=== PATIENT | male | born 1950 | race Caucasian/White ===

== ENCOUNTER 2018-01-06 00:11 | Emergency (ER) | payer MEDICARE, MEDICAID ==
[2018-01-06 01:11] LABS: % BASOPHILS 0.7 % (0.0-2.0); % EOSINOPHILS 0.4 % (0.0-5.0); % LYMPHOCYTES 8.7 % (20.0-50.0); % MONOCYTES 12.3 % (2.0-10.0); % NEUTROPHILS 77.9 % (40.0-80.0); HEMATOCRIT 32.9 % (41.0-60); HEMOGLOBIN 11.2 gm/dL (12-16); LYMPHOCYTE ABSOLUTE 0.5 Th/cmm (1.5-3.0); MEAN CELL VOLUME 100.4 fl (80-99); MEAN CORPUSCULAR HEMOGLOBIN 34.1 pg (27.0-31.0); MEAN PLATELET VOLUME 7.6 fl; MONOCYTE ABSOLUTE 0.7 Th/cmm (0.3-1.0); NEUTROPHILE ABSOLUTE 4.7 Th/cmm (1.8-8.0); PLATELET COUNT 281 Th/cmm (150-400); RED BLOOD COUNT 3.28 Mil/cmm (3.80-5.80); RED CELL DISTRIBUTION WIDTH 15.4 % (11.5-20.0); WHITE BLOOD COUNT 5.9 Th/cmm (4.8-10.8)
--- NOTE | 2018-01-06 01:11 | ED Physician Chart ---
ED Chief Complaint/HPI - Patient Information Date Seen:: 01/06/18 Time Seen:: 01:00 Chief Complaint:: aggressive behavior History of Present Illness:: Patient had been exhibiting increasingly aggressive behavior at his residential facility. Patient has reportedly been throwing objects. 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 Allergies:: Allergies Allergy/AdvReac Type Severity Reaction Status Date / Time No Known Allergies Allergy Verified 01/06/18 00:19 Vitals:: Vital Signs - 8 hr 01/06/18 00:15 Temp 96.8 F HR 97 RR 20 BP 141/95 O2 Sat % 96 Review:: Transfer documents Reviewed ED Review of Systems - Review of Systems General/Constitutional: No fever, No chills, No weight loss, No weakness, No diaphoresis, No edema, No loss of appetite Skin: No skin lesions, No rash, No bruising Head: No headache, No light-headedness Eyes: No loss of vision, No pain, No diplopia ENT: No earache, No nasal drainage, No sore throat, No tinnitus Neck: No neck pain, No swelling, No thyromegaly, No stiffness, No mass noted Cardio Vascular: No chest pain, No palpitations, No PND, No orthopnea, No edema Pulmonary: No SOB, No cough, No sputum, No wheezing GI: No nausea, No vomiting, No diarrhea, No pain, No melena, No hematochezia, No constipation, No hematemesis G/U: No dysuria, No frequency, No hematuria Musculoskeletal: No bone or joint pain, No back pain, No muscle pain Endocrine: No polyuria, No polydipsia Psychiatric: No prior psych history, No depression, No anxiety, No suicidal ideation Hematopoietic: No bruising, No lymphadenopathy Allergic/Immuno: No urticaria, No angioedema Neurological: No syncope, No focal symptoms, No weakness, No paresthesia, No headache, No seizure, No dizziness, No confusion, No vertigo ED Past Medical History - Past Medical History Past Medical History: HTN, Other (chronic renal disease; GERD; hypothyroidism; cerebral palsy) Family History: Other (available) Social History: Care Facility Surgical History: other (tracheostomy) Psychiatricy History: Other (none known) Medication: Reviewed ED Physical Exam - Physical Examination General/Constitutional: Awake Head: Atraumatic Eyes: PERRL Skin: Nl inspection, No rash ENMT: External ears, nose nl, TM canals nl Other ENMT comments:: Edentulous Neck: No nuchal rigidity Respiratory: Nl effort/Exclusion Other Respiratory comments:: Scattered inspiratory expiratory wheezing GI: No tenderness/rebounding/guarding : No CVA tenderness Extremities: No tenderness or effusion Neuro/Psych: No focal deficits ED Labs/Radiology/EKG Results - Lab Results Results: Laboratory Results - last 24 hr 01/06/18 01/06/18 01/06/18 01:05 01:05 01:05 WBC 5.9 RBC 3.28 L Hgb 11.2 L Hct 32.9 L MCV 100.4 H MCH 34.1 H MCHC Differential 34.0 RDW 15.4 Plt Count 281 MPV 7.6 Neutrophils % 77.9 Lymphocytes % 8.7 L Monocytes % 12.3 H Eosinophils % 0.4 Basophils % 0.7 Sodium 135 L Potassium 3.7 Chloride 99 Carbon Dioxide 30.6 Anion Gap 9.1 BUN 29 H Creatinine 1.1 Est GFR ( Amer) > 60.0 Est GFR (Non-Af Amer) > 60.0 BUN/Creatinine Ratio 26.4 Glucose 74 Calcium 8.8 Total Bilirubin 0.4 AST 11 L ALT 11 Alkaline Phosphatase 53 Total Protein 6.0 Albumin 3.2 L Globulin 2.8 Albumin/Globulin Ratio 1.1 Triglycerides 143 Cholesterol 226 H LDL Cholesterol Direct 142 HDL Cholesterol 58 TSH 2.47 - EKG Interpretations Rate & Rhythm: normal sinus rhythm at a rate of 92 [facility]: normal ED Septic Shock - . Is Septic Shock (SBP<90, OR Lactate>4 mmol\L) present?: No - <6hrs of presentation: Vital Signs: Vital Signs - 8 hr 01/06/18 00:15 Temp 96.8 F HR 97 RR 20 BP 141/95 O2 Sat % 96 ED Reassessment (Disposition) - Reassessment Reassessment:: Patient to return to residential facility since no beds available in [facility] Reassessment Condition:: Unchanged - Diagnosis Diagnosis:: Aggressive behavior; cerebral palsy - Aftercare/Follow up Instructions Aftercare/Follow-Up Instructions:: Refer to Discharge Instructions - Patient Disposition Discharge/Transfer:: Residential Care - SNF Condition at Disposition:: Stable, Unchanged
[2018-01-06 01:25] LABS: ALB/GLOB RATIO 1.1 (1.0-1.8); ALBUMIN 3.2 gm/dL (4.2-5.5); ALKALINE PHOSPHATASE 53 U/L (34-104); ANION GAP 9.1 (7.0-16.0); BILIRUBIN,TOTAL 0.4 mg/dL (0.3-1.0); BUN - UREA NITROGEN 29 mg/dL (7-25); CALCIUM SERUM 8.8 mg/dL (8.6-10.3); CARBON DIOXIDE 30.6 mEq/L (21.0-31.0); CHLORIDE 99 mEq/L (98-107); CHOLESTEROL 226 mg/dL (<200); CREATININE - SERUM 1.1 mg/dL (0.7-1.3); GFR AFRICAN-AMERICAN > 60.0 ml/min (>90); GFR NON AFRICAN-AMERICAN > 60.0 ml/min; GLUCOSE 74 mg/dL (70-105); HDL -HIGH DENSITY LIPOPROTEIN 58 mg/dL (23-92); POTASSIUM SERUM 3.7 mEq/L (3.5-5.1); SGOT 11 U/L (13-39); SGPT/ALT 11 U/L (7-52); SODIUM SERUM 135 mEq/L (136-145); TRIGLYCERIDES 143 mg/dL (<150)
[2018-01-06 21:04] LABS: A1C % 6.6 % (4.0-6.0)
== END 2018-01-06 02:50 ==
LOC: ER 00:11
DX: F91.8 Other conduct disorders (principal); G80.9 Cerebral palsy, unspecified; I10 Essential (primary) hypertension; R79.89 Other specified abnormal findings of blood chemistry
CPT/HCPCS: 36415-UA; 80053-TC; 80061-TC; 83036-90; 84443-TC; 85025-TC; 86592-TC; 93005

== ENCOUNTER 2018-02-20 07:32 | Inpatient (IN) | payer MEDICARE, MEDICAID ==
--- NOTE | 2018-02-20 07:59 | ED Physician Chart ---
ED Chief Complaint/HPI - Patient Information Date Seen:: 02/20/18 Time Seen:: 07:53 Chief Complaint:: rt shoulder pain History of Present Illness:: 67 yr old male here from [place] for shoulder pain possible dislocation pt not talking Allergies:: Allergies Allergy/AdvReac Type Severity Reaction Status Date / Time No Known Allergies Allergy Verified 01/06/18 00:19 ED Review of Systems - Review of Systems General/Constitutional: No fever Skin: No skin lesions Head: No headache Eyes: No pain ENT: No nasal drainage Neck: No swelling Cardio Vascular: No edema Pulmonary: No SOB GI: No vomiting G/U: No hematuria Musculoskeletal: Other (possible rt shoulder dislocation) Endocrine: No polyuria Hematopoietic: No bruising Neurological: No syncope ED Past Medical History - Past Medical History Past Medical History: HTN (renal dz), PUD/GERD, Thyroid disorder, Other ( cerebral palsy gait abn muscle weakness) Surgical History: other (trach) ED Physical Exam - Physical Examination Eyes: Lids, conjuctiva normal ENMT: External ears, nose nl Neck: Nontender Other Neck comments:: tracheostomy Respiratory: Nl effort/Exclusion Cardio Vascular: RRR GI: No tenderness/rebounding/guarding Other Extremities comments:: possible rt shoulder dislocation ED Assessment - Assessment General Assessment: rt shoulder pain r/o dislocation ED Septic Shock - . Is Septic Shock (SBP<90, OR Lactate>4 mmol\L) present?: No ED Reassessment (Disposition) - Diagnosis Diagnosis:: rt shoulder pain - Patient Disposition Condition at Disposition:: Stable
[2018-02-20 08:36] LABS: HEMATOCRIT 38.5 % (41.0-60); HEMOGLOBIN 13.2 gm/dL (12-16); MEAN CELL VOLUME 100.8 fl (80-99); MEAN CORPUSCULAR HEMOGLOBIN 34.5 pg (27.0-31.0); MEAN CORPUSCULAR HGB CONC 34.3 pg (28.0-36.0); MEAN PLATELET VOLUME 7.7 fl; PLATELET COUNT 221 Th/cmm (150-400); RED BLOOD COUNT 3.82 Mil/cmm (3.80-5.80); RED CELL DISTRIBUTION WIDTH 15.1 % (11.5-20.0); WHITE BLOOD COUNT 5.9 Th/cmm (4.8-10.8)
[2018-02-20 08:51] LABS: ALB/GLOB RATIO 1.4 (1.0-1.8); ALBUMIN 3.3 gm/dL (4.2-5.5); ALKALINE PHOSPHATASE 51 U/L (34-104); ANION GAP 10.3 (7.0-16.0); BILIRUBIN,TOTAL 0.4 mg/dL (0.3-1.0); BUN - UREA NITROGEN 18 mg/dL (7-25); CARBON DIOXIDE 29.2 mEq/L (21.0-31.0); CHLORIDE 99 mEq/L (98-107); CREATININE - SERUM 0.9 mg/dL (0.7-1.3); GFR AFRICAN-AMERICAN > 60.0 ml/min (>90); GFR NON AFRICAN-AMERICAN > 60.0 ml/min; GLUCOSE 94 mg/dL (70-105); POTASSIUM SERUM 3.5 mEq/L (3.5-5.1); SGOT 15 U/L (13-39); SGPT/ALT 16 U/L (7-52); SODIUM SERUM 135 mEq/L (136-145); TOTAL PROTEIN,SERUM 5.7 gm/dL (6.0-8.3)
--- NOTE | 2018-02-20 08:51 | Diagnostic Imaging Report ---
Left shoulder (3 views) HISTORY: Pain There is anterior dislocation of the left humeral head. No definite associated fractures. IMPRESSION: Dislocation
[2018-02-20 09:32] LABS: BAND NEUTROPHILE 1 % (0-10); BASOPHIL 0 % (0-3); EOSINOPHIL 0 % (0-5); LYMPHOCYTE 5 % (20-50); MONOCYTE 6 % (2-10); NEUTROPHILS 88 % (40-80)
[2018-02-20 11:18] LABS: URINE SOURCE MIDSTREAM
[2018-02-20 11:20] LABS: URINE BILIRUBIN NEGATIVE (NEGATIVE); URINE BLOOD NEGATIVE (NEGATIVE); URINE GLUCOSE (UA) NEGATIVE (NEGATIVE); URINE KETONE NEGATIVE (NEGATIVE); URINE LEUKOCYTE ESTERASE NEGATIVE (NEGATIVE); URINE NITRATE NEGATIVE (NEGATIVE); URINE PROTEIN NEGATIVE (NEGATIVE); URINE UROBILINOGEN 0.2 E.U./dL (0.2 - 1.0)
[2018-02-20 11:23] LABS: URINE CLARITY CLEAR (CLEAR); URINE COLOR YELLOW; URINE MICROSCOPIC INDICATED? NO
[2018-02-20] MEDS ORDERED: Magnesium Hydroxide (MOM) 30 mL UDC PO PRN (11:41)
[2018-02-20] MEDS ORDERED: Fleet Enema 135 mL RC PRN (11:41)
[2018-02-20] MEDS ORDERED: Acetaminophen 500 MG TAB PO PRN (11:41)
--- NOTE | 2018-02-20 11:41 | Internal Medicine Prog Note ---
Internal Medicine Subjective - Subjective Service Date: 02/20/18 ([facility] [id number]) Internal Medicine Objective - Results Result Diagrams: 02/20/18 08:30 02/20/18 08:30 Recent Labs: Laboratory Last Values WBC 5.9 Th/cmm (4.8-10.8) 02/20/18 08:30 RBC 3.82 Mil/cmm (3.80-5.80) 02/20/18 08:30 Hgb 13.2 gm/dL (12-16) 02/20/18 08:30 Hct 38.5 % (41.0-60) L 02/20/18 08:30 MCV 100.8 fl (80-99) H 02/20/18 08:30 MCH 34.5 pg (27.0-31.0) H 02/20/18 08:30 MCHC Differential 34.3 pg (28.0-36.0) 02/20/18 08:30 RDW 15.1 % (11.5-20.0) 02/20/18 08:30 Plt Count 221 Th/cmm (150-400) 02/20/18 08:30 MPV 7.7 fl 02/20/18 08:30 Add Manual Diff YES 02/20/18 08:30 Neutrophils % [employer]LLER 02/20/18 08:30 Band Neutrophils % 1 % (0-10) 02/20/18 08:30 Lymphocytes % [employer]ER 02/20/18 08:30 Monocytes % PRINT [employer]OLLER 02/20/18 08:30 Eosinophils % PRINT [employer]OLLER 02/20/18 08:30 Basophils % PR[employer]ER 02/20/18 08:30 Neutrophils (Manual) 88 % (40-80) H 02/20/18 08:30 Lymphocytes 5 % (20-50) L 02/20/18 08:30 Monocytes 6 % (2-10) 02/20/18 08:30 Eosinophils 0 % (0-5) 02/20/18 08:30 Basophils 0 % (0-3) 02/20/18 08:30 Sodium 135 mEq/L (136-145) L 02/20/18 08:30 Potassium 3.5 mEq/L (3.5-5.1) 02/20/18 08:30 Chloride 99 mEq/L (98-107) 02/20/18 08:30 Carbon Dioxide 29.2 mEq/L (21.0-31.0) 02/20/18 08:30 Anion Gap 10.3 (7.0-16.0) 02/20/18 08:30 BUN 18 mg/dL (7-25) 02/20/18 08:30 Creatinine 0.9 mg/dL (0.7-1.3) 02/20/18 08:30 Est GFR ( Amer) > 60.0 ml/min (>90) 02/20/18 08:30 Est GFR (Non-Af Amer) > 60.0 ml/min 02/20/18 08:30 BUN/Creatinine Ratio 20.0 02/20/18 08:30 Glucose 94 mg/dL (70-105) 02/20/18 08:30 Calcium 9.0 mg/dL (8.6-10.3) 02/20/18 08:30 Total Bilirubin 0.4 mg/dL (0.3-1.0) 02/20/18 08:30 AST 15 U/L (13-39) 02/20/18 08:30 ALT 16 U/L (7-52) 02/20/18 08:30 Alkaline Phosphatase 51 U/L (34-104) 02/20/18 08:30 Total Protein 5.7 gm/dL (6.0-8.3) L 02/20/18 08:30 Albumin 3.3 gm/dL (4.2-5.5) L 02/20/18 08:30 Globulin 2.4 gm/dL 02/20/18 08:30 Albumin/Globulin Ratio 1.4 (1.0-1.8) 02/20/18 08:30 Urine Source MIDSTREAM 02/20/18 10:50 Urine Color YELLOW 02/20/18 10:50 Urine Clarity CLEAR (CLEAR) 02/20/18 10:50 Urine pH 7.0 (4.6 - 8.0) 02/20/18 10:50 Ur Specific [place] 1.010 (1.005-1.030) 02/20/18 10:50 Urine Protein NEGATIVE mg/dL (NEGATIVE) 02/20/18 10:50 Urine Glucose (UA) NEGATIVE mg/dL (NEGATIVE) 02/20/18 10:50 Urine Ketones NEGATIVE mg/dL (NEGATIVE) 02/20/18 10:50 Urine Blood NEGATIVE (NEGATIVE) 02/20/18 10:50 Urine Nitrate NEGATIVE (NEGATIVE) 02/20/18 10:50 Urine Bilirubin NEGATIVE (NEGATIVE) 02/20/18 10:50 Urine Urobilinogen 0.2 E.U./dL (0.2 - 1.0) 02/20/18 10:50 Ur Leukocyte Esterase NEGATIVE (NEGATIVE) 02/20/18 10:50 - Physical Exam Vitals and I&O: Vital Signs Temp 98.2 F 02/20/18 10:00 Pulse 106 02/20/18 10:00 Resp 20 02/20/18 10:00 BP 127/83 02/20/18 10:00 Pulse Ox 98 02/20/18 10:00 Intake & Output 02/19/18 02/20/18 02/20/18 18:59 06:59 18:59 Weight (lbs) 160 lb Other: Weight Source Estimated
[2018-02-20] MEDS ORDERED: Ipratropium Neb 0.5 mg/2.5 mL UD IH PRN (11:44)
[2018-02-20] MEDS ORDERED: Albuterol Nebulizer 2.5mg/3mL IH PRN (11:44)
[2018-02-20] MEDS ORDERED: Maalox 30 mL Cup PO PRN (11:45)
[2018-02-20] MEDS ORDERED: guaiFENesin 200 MG/10 ML UDC PO PRN (11:45)
[2018-02-20] MEDS ORDERED: Budesonide 0.5 Mg/2 mL Ud HHN ONE (11:52)
[2018-02-20] MEDS ORDERED: Albuterol/Ipratropium Neb 3 ML AERS HHN ONE (11:53)
[2018-02-20] MEDS ORDERED: Albuterol/Ipratropium Neb 3 ML AERS HHN SCH (12:00)
[2018-02-20] MEDS: D5-0.45NS 1,000 ML IV SCH (13:30)
[2018-02-20] MEDS ORDERED: BRIMONIDINE TARTRATE LEFT EYE SCH (17:00)
[2018-02-20] MEDS ORDERED: PREDNISONE 20 MG PO SCH (17:00)
[2018-02-20] MEDS ORDERED: [UNRECOGNIZED DRUG - OTHER] LEFT EYE SCH (17:00)
[2018-02-20] MEDS ORDERED: TIMOLOL LEFT EYE SCH (17:00)
[2018-02-20] MEDS: Pantoprazole 40 mg EC Tab PO SCH (18:00)
[2018-02-20] MEDS: Albuterol/Ipratropium Neb 3 ML AERS HHN SCH ×2 (19:32→19:36)
[2018-02-20] MEDS: Budesonide 0.5 Mg/2 mL Ud HHN SCH (19:32)
--- NOTE | 2018-02-20 20:44 | History & Physical ---
ADMIT DATE: 02/20/[address] Johnny Osuna. CHIEF COMPLAINT: Right shoulder pain. HISTORY OF PRESENT ILLNESS: This is a 67-year-old male who is well known to me from [facility] who was admitted to the med/surg unit due to complaints of right shoulder pain. The patient had an x-ray of the bilateral shoulders. The patient had a left humerus x-ray done and it showed complete anterior dislocation of the glenohumeral joint. For this reason and due to patient increase of pain, the patient is now admitted here to the med/surg unit. PAST MEDICAL HISTORY: Hypertension, GERD, hypothyroid, cerebral palsy, deaf and mute, muscle weakness. PAST SURGICAL HISTORY: Tracheostomy. REVIEW OF SYSTEMS: Unable to obtain, patient is deaf and mute. SOCIAL HISTORY: The patient is a resident of [facility] requiring 24-hour nursing care. PHYSICAL EXAMINATION: GENERAL: Elderly male, awake, alert, able to communicate through sign language in no apparent distress. VITAL SIGNS: Temperature 98.2, heart rate 106, blood pressure 127/83, respirations 20, O2 of 98%. HEENT: Head; normocephalic, atraumatic. NECK: Supple. No mass. Tracheostomy in place. LUNGS: Clear bilaterally. CARDIOVASCULAR: Regular rhythm. No murmurs or gallops. ABDOMEN: Soft, nontender, nondistended. LABORATORY DATA: WBC 5.9, H and H 13.2/38.5, platelet of 221. Sodium 135, potassium 3.5, chloride 99, BUN 18, creatinine 0.9. DIAGNOSTICS: The patient had an x-ray of the left shoulder. IMPRESSION: Dislocation. ASSESSMENT: Acute shoulder pain secondary to left humeral complete anterior dislocation of the glenohumeral joint, hypertension, gastroesophageal reflux disease, hypothyroidism, cerebral palsy, generalized weakness, deaf and mute. PLAN: The patient to be admitted to the med/surg unit. We will get orthopedic on the case. Fall precautions will be initiated. Pain management as needed. We will continue to follow this patient. JOB# [id number]
[2018-02-21] MEDS: Albuterol/Ipratropium Neb 3 ML AERS HHN SCH ×4 (00:25→20:26)
[2018-02-21] MEDS: D5-0.45NS 1,000 ML IV SCH (05:02)
[2018-02-21 06:55] LABS: % EOSINOPHILS 0.8 % (0.0-5.0); % LYMPHOCYTES 8.7 % (20.0-50.0); % NEUTROPHILS 77.5 % (40.0-80.0); HEMATOCRIT 36.6 % (41.0-60); HEMOGLOBIN 12.5 gm/dL (12-16); LYMPHOCYTE ABSOLUTE 0.4 Th/cmm (1.5-3.0); MEAN CORPUSCULAR HEMOGLOBIN 34.4 pg (27.0-31.0); MEAN PLATELET VOLUME 7.8 fl; MONOCYTE ABSOLUTE 0.6 Th/cmm (0.3-1.0); NEUTROPHILE ABSOLUTE 3.6 Th/cmm (1.8-8.0); PLATELET COUNT 194 Th/cmm (150-400); RED BLOOD COUNT 3.63 Mil/cmm (3.80-5.80); RED CELL DISTRIBUTION WIDTH 14.8 % (11.5-20.0); WHITE BLOOD COUNT 4.6 Th/cmm (4.8-10.8)
[2018-02-21 07:00] LABS: INR 0.97 (0.5-1.4); PROTHROMBIN TIME (TEST) 10.1 SECONDS (9.5-11.5)
[2018-02-21] MEDS: Budesonide 0.5 Mg/2 mL Ud HHN SCH ×2 (07:12→20:26)
[2018-02-21 07:13] LABS: ALB/GLOB RATIO 1.2 (1.0-1.8); ALBUMIN 2.8 gm/dL (4.2-5.5); ALKALINE PHOSPHATASE 46 U/L (34-104); ANION GAP 8.8 (7.0-16.0); BILIRUBIN,TOTAL 0.3 mg/dL (0.3-1.0); BUN - UREA NITROGEN 17 mg/dL (7-25); CALCIUM SERUM 8.4 mg/dL (8.6-10.3); CARBON DIOXIDE 29.5 mEq/L (21.0-31.0); CHLORIDE 99 mEq/L (98-107); CREATININE - SERUM 0.9 mg/dL (0.7-1.3); GFR AFRICAN-AMERICAN > 60.0 ml/min (>90); GFR NON AFRICAN-AMERICAN > 60.0 ml/min; GLUCOSE 110 mg/dL (70-105); POTASSIUM SERUM 3.3 mEq/L (3.5-5.1); SGOT 13 U/L (13-39); SGPT/ALT 13 U/L (7-52); SODIUM SERUM 134 mEq/L (136-145); TOTAL PROTEIN,SERUM 5.1 gm/dL (6.0-8.3)
[2018-02-21] MEDS ORDERED: Non-Formulary Item 1 EA (Levothyroxine Sodium [Levothyroxine Sodium] 150 MCG) PO SCH (09:00)
[2018-02-21] MEDS: Pantoprazole 40 mg EC Tab PO SCH ×2 (09:02→17:03)
[2018-02-21] MEDS: Ferrous Sulfate 325 MG TAB PO SCH (09:02)
[2018-02-21] MEDS: Multivitamin w/ Minerals Tab PO SCH (09:03)
[2018-02-21] MEDS: POLYETHYLENE GLYCOL 3350 17 GM PACK PO SCH (09:04)
[2018-02-21] MEDS: Diltiazem CD 180 mg C24 PO SCH (09:10)
[2018-02-21] MEDS ORDERED: Potassium Chloride 20 mEq ER Tab PO ONE (12:41)
--- NOTE | 2018-02-21 12:41 | Internal Medicine Prog Note ---
Internal Medicine Subjective - Subjective Service Date: 02/21/18 Patient seen and examined:: with staff Patient is:: awake, non-verbal Per staff patient has:: tolerating meds Internal Medicine Objective - Results Result Diagrams: 02/21/18 05:40 02/21/18 05:40 Recent Labs: Laboratory Last Values WBC 4.6 Th/cmm (4.8-10.8) L 02/21/18 05:40 RBC 3.63 Mil/cmm (3.80-5.80) L 02/21/18 05:40 Hgb 12.5 gm/dL (12-16) 02/21/18 05:40 Hct 36.6 % (41.0-60) L 02/21/18 05:40 MCV 101.0 fl (80-99) H 02/21/18 05:40 MCH 34.4 pg (27.0-31.0) H 02/21/18 05:40 MCHC Differential 34.0 pg (28.0-36.0) 02/21/18 05:40 RDW 14.8 % (11.5-20.0) 02/21/18 05:40 Plt Count 194 Th/cmm (150-400) 02/21/18 05:40 MPV 7.8 fl 02/21/18 05:40 Add Manual Diff YES 02/20/18 08:30 Neutrophils % 77.5 % (40.0-80.0) 02/21/18 05:40 Band Neutrophils % 1 % (0-10) 02/20/18 08:30 Lymphocytes % 8.7 % (20.0-50.0) L 02/21/18 05:40 Monocytes % 12.0 % (2.0-10.0) H 02/21/18 05:40 Eosinophils % 0.8 % (0.0-5.0) 02/21/18 05:40 Basophils % 1.0 % (0.0-2.0) 02/21/18 05:40 Neutrophils (Manual) 88 % (40-80) H 02/20/18 08:30 Lymphocytes 5 % (20-50) L 02/20/18 08:30 Monocytes 6 % (2-10) 02/20/18 08:30 Eosinophils 0 % (0-5) 02/20/18 08:30 Basophils 0 % (0-3) 02/20/18 08:30 PT 10.1 SECONDS (9.5-11.5) 02/21/18 05:40 INR 0.97 (0.5-1.4) 02/21/18 05:40 PTT (Actin FS) 26.3 SECONDS (26.0-38.0) 02/21/18 05:40 Sodium 134 mEq/L (136-145) L 02/21/18 05:40 Potassium 3.3 mEq/L (3.5-5.1) L 02/21/18 05:40 Chloride 99 mEq/L (98-107) 02/21/18 05:40 Carbon Dioxide 29.5 mEq/L (21.0-31.0) 02/21/18 05:40 Anion Gap 8.8 (7.0-16.0) 02/21/18 05:40 BUN 17 mg/dL (7-25) 02/21/18 05:40 Creatinine 0.9 mg/dL (0.7-1.3) 02/21/18 05:40 Est GFR ( Amer) > 60.0 ml/min (>90) 02/21/18 05:40 Est GFR (Non-Af Amer) > 60.0 ml/min 02/21/18 05:40 BUN/Creatinine Ratio 18.9 02/21/18 05:40 Glucose 110 mg/dL (70-105) H 02/21/18 05:40 Calcium 8.4 mg/dL (8.6-10.3) L 02/21/18 05:40 Total Bilirubin 0.3 mg/dL (0.3-1.0) 02/21/18 05:40 AST 13 U/L (13-39) 02/21/18 05:40 ALT 13 U/L (7-52) 02/21/18 05:40 Alkaline Phosphatase 46 U/L (34-104) 02/21/18 05:40 Total Protein 5.1 gm/dL (6.0-8.3) L 02/21/18 05:40 Albumin 2.8 gm/dL (4.2-5.5) L 02/21/18 05:40 Globulin 2.3 gm/dL 02/21/18 05:40 Albumin/Globulin Ratio 1.2 (1.0-1.8) 02/21/18 05:40 Urine Source MIDSTREAM 02/20/18 10:50 Urine Color YELLOW 02/20/18 10:50 Urine Clarity CLEAR (CLEAR) 02/20/18 10:50 Urine pH 7.0 (4.6 - 8.0) 02/20/18 10:50 Ur Specific [place] 1.010 (1.005-1.030) 02/20/18 10:50 Urine Protein NEGATIVE mg/dL (NEGATIVE) 02/20/18 10:50 Urine Glucose (UA) NEGATIVE mg/dL (NEGATIVE) 02/20/18 10:50 Urine Ketones NEGATIVE mg/dL (NEGATIVE) 02/20/18 10:50 Urine Blood NEGATIVE (NEGATIVE) 02/20/18 10:50 Urine Nitrate NEGATIVE (NEGATIVE) 02/20/18 10:50 Urine Bilirubin NEGATIVE (NEGATIVE) 02/20/18 10:50 Urine Urobilinogen 0.2 E.U./dL (0.2 - 1.0) 02/20/18 10:50 Ur Leukocyte Esterase NEGATIVE (NEGATIVE) 02/20/18 10:50 - Physical Exam Vitals and I&O: Vital Signs Temp 98.1 F 02/21/18 08:00 Pulse 100 02/21/18 09:10 Resp 20 02/21/18 08:00 BP 121/86 02/21/18 09:03 Pulse Ox 98 02/21/18 08:00 Intake & Output 02/20/18 02/21/18 02/21/18 18:59 06:59 18:59 Intake Total 200 Output Total 650 Balance -450 Weight (lbs) 160 lb 160 lb 160 lb Intake: Oral 200 Output: Urine 650 Other: # Bowel Movements 0 Weight Source Bedscale Bedscale Bedscale Active Medications: Current Medications Acetaminophen (Tylenol) 650 mg PO Q6HR PRN PRN Reason: Fever >101/MILD PAIN Stop: 04/21/18 11:40 Acetaminophen (Tylenol Extra Strength) 1,000 mg PO Q8H PRN PRN Reason: MODERATE PAIN Stop: 04/21/18 11:40 Al Hydrox/Mg Hydrox/Simethicone (Maalox) 30 ml PO Q6HR PRN PRN Reason: Dyspepsia Stop: 04/21/18 11:44 Albuterol Sulfate (Albuterol 2.5mg/3ml Neb Ud) 2.5 mg IH Q2HR PRN PRN Reason: Shortness of Breath or Wheeze Stop: 04/21/18 11:43 Albuterol/Ipratropium (Duoneb Neb) 3 ml HHN Q6HRT JERMAINE Stop: 04/21/18 11:59 Last Admin: 02/21/18 07:12 Dose: 3 ml Ascorbic Acid (Vitamin C) 500 mg PO DAILY JERMAINE Stop: 04/22/18 08:59 Last Admin: 02/21/18 09:03 Dose: 500 mg Bisacodyl (Dulcolax 10 Mg Supp) 10 mg RC DAILY PRN PRN Reason: IF MOM INEFFECTIVE Stop: 04/21/18 11:40 Brimonidine Tartrate (Alphagan 0.2% [facility]) 1 drop LEFT EYE BID [facility] Stop: 04/21/18 16:59 Last Admin: 02/21/18 09:11 Dose: 1 drop Budesonide (Pulmicort) 0.5 mg HHN BIDRT JERMAINE Stop: 04/21/18 18:59 Last Admin: 02/21/18 07:12 Dose: 0.5 mg Diltiazem HCl (Cardizem Cd) 180 mg PO DAILY JERMAINE Stop: 04/22/18 08:59 Last Admin: 02/21/18 09:10 Dose: 180 mg Diphenhydramine HCl (Benadryl) 25 mg PO Q8H [facility] Stop: 04/21/18 11:44 Last Admin: 02/21/18 11:24 Dose: 25 mg Docusate Sodium (Colace) 200 mg PO BID JERMAINE Stop: 04/21/18 16:59 Last Admin: 02/21/18 09:03 Dose: 200 mg Ferrous Sulfate (Iron) 325 mg PO DAILY JERMAINE Stop: 04/22/18 08:59 Last Admin: 02/21/18 09:02 Dose: 325 mg Folic Acid (Folate) 1 mg PO DAILY JERMAINE Stop: 04/22/18 08:59 Last Admin: 02/21/18 09:02 Dose: 1 mg Guaifenesin (Robitussin) 100 mg PO Q4H PRN PRN Reason: Cough or Congestion Stop: 04/21/18 11:44 Dextrose/Sodium Chloride (D5-0.45ns) 1,000 mls @ 50 mls/hr IV .Q20H JERMAINE Stop: 04/21/18 11:44 Last Admin: 02/21/18 05:02 Dose: 50 mls/hr Ipratropium [place] (Atrovent Neb 0.5mg/2.5ml) 0.5 mg IH Q2HR PRN PRN Reason: Shortness of Breath or Wheeze Stop: 04/21/18 11:43 Levothyroxine Sodium 0.1 mg/ (Levothyroxine Sodium 0.05 mg) 0.15 mg PO QDAC JERMAINE Stop: 04/22/18 07:29 Last Admin: 02/21/18 06:45 Dose: 0.15 mg Lorazepam (Ativan) 0.5 mg PO Q6H PRN; Protocol PRN Reason: Anxiety Stop: 04/21/18 11:40 Magnesium Hydroxide (Milk Of Magnesia) 30 ml PO HS PRN PRN Reason: Constipation Stop: 04/21/18 11:40 Montelukast Sodium (Singulair) 10 mg PO HS JERMAINE Stop: 04/21/18 20:59 Last Admin: 02/20/18 21:02 Dose: 10 mg Ondansetron HCl (Zofran Odt) 4 mg PO Q8H PRN PRN Reason: Nausea / Vomiting Ondansetron HCl (Zofran) 4 mg IV Q8H PRN PRN Reason: Nausea / Vomiting Stop: 04/21/18 11:44 Pantoprazole Sodium (Protonix) 40 mg PO BID JERMAINE Stop: 04/21/18 16:59 Last Admin: 02/21/18 09:02 Dose: 40 mg Polyethylene Glycol (Miralax) 17 gm PO DAILY JERMAINE Stop: 04/22/18 08:59 Last Admin: 02/21/18 09:04 Dose: 17 gm Prednisone (Deltasone) 20 mg PO BID JERMAINE Stop: 04/22/18 08:59 Last Admin: 02/21/18 11:23 Dose: 20 mg Sodium Phosphate (Fleet Enema) 135 ml RC PRN PRN PRN Reason: IF DULCOLAX SUPP. INEFFECTIVE Stop: 04/21/18 11:40 Timolol Maleate (Timoptic 0.5% Ophth Soln) 1 drop LEFT EYE BID JERMAINE Stop: 04/21/18 16:59 Last Admin: 02/21/18 09:10 Dose: 1 drop Valsartan (Diovan) 80 mg PO DAILY JERMAINE Stop: 04/22/18 08:59 Last Admin: 02/21/18 09:03 Dose: 80 mg General: alert HEENT: NC/AT, PERRLA Neck: Supple Lungs: CTAB Cardiovascular: RRR, Normal S1, Normal S2, without murmur Abdomen: soft, non-tender, non-distended Extremities: excoriation Neurological: alert Internal Medicine Assmt/Plan - Assessment Assessment: acute shoulder pain secondary to left humeral complete anterior dislocation of the glenohumeral joint htn gerd hypothyroidism cerebral palsy generalized weakness deaf and mute - Plan Plan: await for ortho recommendations fall precautions continue current plan of care
--- NOTE | 2018-02-21 22:57 | Consultation ---
DATE OF CONSULTATION: 02/21/2018 ORTHOPEDIC SURGERY CONSULTATION HISTORY OF PRESENT ILLNESS: The patient is a 67-year-old gentleman admitted to [facility]/transferred from [facility] on 02/20/2018 for evaluation of his left shoulder. No information accompanies him. There are copies of x-ray reports that were sent with him of the wrist, arm and shoulder, stating that there is a dislocation of the left shoulder. I attempted to get more information from the medical records, from the patient, from the cazares personnel, the case workers -- everyone and I cannot get any information. The patient is deaf and mute; however, we asked him and he seemed to understand that we are asking when he hurt himself. He was given a piece of paper and pencil and he wrote "I no." Additional past history, social history, review of systems, etc. unobtainable. The patient is examined in his hospital room at [facility]. There is slight swelling about the left shoulder, but no bruising. He moves his hand, wrist and elbow okay. He moves his shoulder only 20% of normal. I can range it to 40% and he seems to have pain. NEUROLOGIC EXAMINATION: They are normal reflexes in both upper extremities. Sensation -- apparently intact. IMAGING STUDIES: I viewed the images in the PACS, left shoulder, 02/20/2018. There is anterior/inferior dislocation of the left shoulder, age undetermined. ORTHOPEDIC DIAGNOSIS: Dislocation, left shoulder, closed. RECOMMENDATIONS: I have asked for more information about the patient and specifically when this dislocation may have occurred. If it is reasonably recent i.e., 2 weeks or so, I can attempt a closed reduction under anesthesia if it is more than 3 weeks, I think it is best left alone. The pain will subside, he will develop a pseudarthrosis and have 50-60% of normal movement and be okay. I am waiting for further information today about this injury. I can schedule him tomorrow for closed reduction under anesthesia depending upon what the patient case manager finds out for me. Thank you for this interesting referral. JOB# [id number]
[2018-02-22] MEDS: Albuterol/Ipratropium Neb 3 ML AERS HHN SCH ×4 (01:58→20:16)
[2018-02-22] MEDS: Budesonide 0.5 Mg/2 mL Ud HHN SCH ×2 (06:56→20:16)
[2018-02-22 07:08] LABS: HEMATOCRIT 35.6 % (41.0-60); HEMOGLOBIN 12.3 gm/dL (12-16); MEAN CELL VOLUME 100.5 fl (80-99); MEAN CORPUSCULAR HEMOGLOBIN 34.8 pg (27.0-31.0); MEAN CORPUSCULAR HGB CONC 34.6 pg (28.0-36.0); PLATELET COUNT 189 Th/cmm (150-400); RED BLOOD COUNT 3.54 Mil/cmm (3.80-5.80); RED CELL DISTRIBUTION WIDTH 14.4 % (11.5-20.0); WHITE BLOOD COUNT 6.3 Th/cmm (4.8-10.8)
[2018-02-22 07:13] LABS: ANION GAP 8.3 (7.0-16.0); BUN - UREA NITROGEN 26 mg/dL (7-25); CALCIUM SERUM 8.9 mg/dL (8.6-10.3); CARBON DIOXIDE 28.7 mEq/L (21.0-31.0); CHLORIDE 101 mEq/L (98-107); CREATININE - SERUM 0.7 mg/dL (0.7-1.3); GFR AFRICAN-AMERICAN > 60.0 ml/min (>90); GFR NON AFRICAN-AMERICAN > 60.0 ml/min; GLUCOSE 111 mg/dL (70-105); SODIUM SERUM 134 mEq/L (136-145)
[2018-02-22 07:46] LABS: BAND NEUTROPHILE 3 % (0-10); BASOPHIL 0 % (0-3); EOSINOPHIL 1 % (0-5); LYMPHOCYTE 10 % (20-50); MONOCYTE 7 % (2-10); NEUTROPHILS 79 % (40-80); PLATELET ESTIMATE ADEQUATE (NORMAL)
[2018-02-22] MEDS: Ferrous Sulfate 325 MG TAB PO SCH (08:58)
[2018-02-22] MEDS: Multivitamin w/ Minerals Tab PO SCH (08:59)
[2018-02-22] MEDS: Pantoprazole 40 mg EC Tab PO SCH ×2 (08:59→17:02)
[2018-02-22] MEDS: POLYETHYLENE GLYCOL 3350 17 GM PACK PO SCH (08:59)
[2018-02-22] MEDS: Diltiazem CD 180 mg C24 PO SCH (09:00)
[2018-02-22] MEDS ORDERED: fentaNYL Citrate 100 mcg/2mL Vial ONE (09:48)
--- NOTE | 2018-02-22 10:03 | Diagnostic Imaging Report ---
Portable chest x-ray History: Cough, preoperative Allowing for portable technique the heart size is normal. No focal pulmonary parenchymal processes. No hilar or mediastinal abnormalities. Surgical clips project over the lower neck/upper chest region. There is dislocation of the left humeral head. Impression: 1. No acute pulmonary processes 2. Dislocation left humeral head
[2018-02-22] MEDS ORDERED: Propofol **SURGERY USE ONLY** 20 ML IV ONE (10:13)
--- NOTE | 2018-02-22 10:49 | Diagnostic Imaging Report ---
Left shoulder (intraoperative fluoroscopic images and services) HISTORY: Dislocation, surgery Intraoperative fluoroscopic images and services were provided for facilitation of reduction in a previously reported dislocation. 2 seconds fluoroscopy time was utilized.
--- NOTE | 2018-02-22 11:49 | Internal Medicine Prog Note ---
Internal Medicine Subjective - Subjective Service Date: 02/22/18 (patients brother at bedside and does not want patient to go back [facility] ) Patient seen and examined:: with staff Patient is:: awake, non-verbal Per staff patient has:: tolerating meds Internal Medicine Objective - Results Result Diagrams: 02/22/18 06:00 02/22/18 06:00 Recent Labs: Laboratory Last Values WBC 6.3 Th/cmm (4.8-10.8) 02/22/18 06:00 RBC 3.54 Mil/cmm (3.80-5.80) L 02/22/18 06:00 Hgb 12.3 gm/dL (12-16) 02/22/18 06:00 Hct 35.6 % (41.0-60) L 02/22/18 06:00 MCV 100.5 fl (80-99) H 02/22/18 06:00 MCH 34.8 pg (27.0-31.0) H 02/22/18 06:00 MCHC Differential 34.6 pg (28.0-36.0) 02/22/18 06:00 RDW 14.4 % (11.5-20.0) 02/22/18 06:00 Plt Count 189 Th/cmm (150-400) 02/22/18 06:00 MPV 8.0 fl 02/22/18 06:00 Add Manual Diff YES 02/22/18 06:00 Neutrophils % 77.5 % (40.0-80.0) 02/21/18 05:40 Band Neutrophils % 3 % (0-10) 02/22/18 06:00 Lymphocytes % 8.7 % (20.0-50.0) L 02/21/18 05:40 Monocytes % 12.0 % (2.0-10.0) H 02/21/18 05:40 Eosinophils % 0.8 % (0.0-5.0) 02/21/18 05:40 Basophils % 1.0 % (0.0-2.0) 02/21/18 05:40 Neutrophils (Manual) 79 % (40-80) 02/22/18 06:00 Lymphocytes 10 % (20-50) L 02/22/18 06:00 Monocytes 7 % (2-10) 02/22/18 06:00 Eosinophils 1 % (0-5) 02/22/18 06:00 Basophils 0 % (0-3) 02/22/18 06:00 Platelet Estimate ADEQUATE (NORMAL) 02/22/18 06:00 PT 10.1 SECONDS (9.5-11.5) 02/21/18 05:40 INR 0.97 (0.5-1.4) 02/21/18 05:40 PTT (Actin FS) 26.3 SECONDS (26.0-38.0) 02/21/18 05:40 Sodium 134 mEq/L (136-145) L 02/22/18 06:00 Potassium 4.0 mEq/L (3.5-5.1) 02/22/18 06:00 Chloride 101 mEq/L (98-107) 02/22/18 06:00 Carbon Dioxide 28.7 mEq/L (21.0-31.0) 02/22/18 06:00 Anion Gap 8.3 (7.0-16.0) 02/22/18 06:00 BUN 26 mg/dL (7-25) H 02/22/18 06:00 Creatinine 0.7 mg/dL (0.7-1.3) 02/22/18 06:00 Est GFR ( Amer) > 60.0 ml/min (>90) 02/22/18 06:00 Est GFR (Non-Af Amer) > 60.0 ml/min 02/22/18 06:00 BUN/Creatinine Ratio 37.1 02/22/18 06:00 Glucose 111 mg/dL (70-105) H 02/22/18 06:00 Calcium 8.9 mg/dL (8.6-10.3) 02/22/18 06:00 Total Bilirubin 0.3 mg/dL (0.3-1.0) 02/21/18 05:40 AST 13 U/L (13-39) 02/21/18 05:40 ALT 13 U/L (7-52) 02/21/18 05:40 Alkaline Phosphatase 46 U/L (34-104) 02/21/18 05:40 Total Protein 5.1 gm/dL (6.0-8.3) L 02/21/18 05:40 Albumin 2.8 gm/dL (4.2-5.5) L 02/21/18 05:40 Globulin 2.3 gm/dL 02/21/18 05:40 Albumin/Globulin Ratio 1.2 (1.0-1.8) 02/21/18 05:40 Urine Source MIDSTREAM 02/20/18 10:50 Urine Color YELLOW 02/20/18 10:50 Urine Clarity CLEAR (CLEAR) 02/20/18 10:50 Urine pH 7.0 (4.6 - 8.0) 02/20/18 10:50 Ur Specific [place] 1.010 (1.005-1.030) 02/20/18 10:50 Urine Protein NEGATIVE mg/dL (NEGATIVE) 02/20/18 10:50 Urine Glucose (UA) NEGATIVE mg/dL (NEGATIVE) 02/20/18 10:50 Urine Ketones NEGATIVE mg/dL (NEGATIVE) 02/20/18 10:50 Urine Blood NEGATIVE (NEGATIVE) 02/20/18 10:50 Urine Nitrate NEGATIVE (NEGATIVE) 02/20/18 10:50 Urine Bilirubin NEGATIVE (NEGATIVE) 02/20/18 10:50 Urine Urobilinogen 0.2 E.U./dL (0.2 - 1.0) 02/20/18 10:50 Ur Leukocyte Esterase NEGATIVE (NEGATIVE) 02/20/18 10:50 - Physical Exam Vitals and I&O: Vital Signs Temp 98.1 F 02/22/18 08:00 Pulse 85 02/22/18 09:00 Resp 18 02/22/18 08:00 BP 134/89 02/22/18 09:00 Pulse Ox 98 02/22/18 08:00 Intake & Output 02/21/18 02/22/18 02/22/18 18:59 06:59 18:59 Intake Total 300 Output Total 600 700 Balance -300 -700 Weight (lbs) 160 lb 160 lb Intake: Oral 300 Output: Urine 600 700 Other: Weight Source Bedscale Bedscale Active Medications: Current Medications Acetaminophen (Tylenol) 650 mg PO Q6HR PRN PRN Reason: Fever >101/MILD PAIN Stop: 04/21/18 11:40 Acetaminophen (Tylenol Extra Strength) 1,000 mg PO Q8H PRN PRN Reason: MODERATE PAIN Stop: 04/21/18 11:40 Al Hydrox/Mg Hydrox/Simethicone (Maalox) 30 ml PO Q6HR PRN PRN Reason: Dyspepsia Stop: 04/21/18 11:44 Albuterol Sulfate (Albuterol 2.5mg/3ml Neb Ud) 2.5 mg IH Q2HR PRN PRN Reason: Shortness of Breath or Wheeze Stop: 04/21/18 11:43 Albuterol/Ipratropium (Duoneb Neb) 3 ml HHN Q6HRT [facility] Stop: 04/21/18 11:59 Last Admin: 02/22/18 06:56 Dose: 3 ml Ascorbic Acid (Vitamin C) 500 mg PO DAILY [facility] Stop: 04/22/18 08:59 Last Admin: 02/22/18 08:57 Dose: Not Given Bisacodyl (Dulcolax 10 Mg Supp) 10 mg RC DAILY PRN PRN Reason: IF MOM INEFFECTIVE Stop: 04/21/18 11:40 Brimonidine Tartrate (Alphagan 0.2% Oph Sol) 1 drop LEFT EYE BID [facility] Stop: 04/21/18 16:59 Last Admin: 02/22/18 10:51 Dose: Not Given Budesonide (Pulmicort) 0.5 mg HHN BIDRT [facility] Stop: 04/21/18 18:59 Last Admin: 02/22/18 06:56 Dose: 0.5 mg Diltiazem HCl (Cardizem Cd) 180 mg PO DAILY [facility] Stop: 04/22/18 08:59 Last Admin: 02/22/18 09:00 Dose: Not Given Diphenhydramine HCl (Benadryl) 25 mg PO Q8H [facility] Stop: 04/21/18 11:44 Last Admin: 02/22/18 03:38 Dose: Not Given Docusate Sodium (Colace) 200 mg PO BID [facility] Stop: 04/21/18 16:59 Last Admin: 02/22/18 08:58 Dose: Not Given Ferrous Sulfate (Iron) 325 mg PO DAILY [facility] Stop: 04/22/18 08:59 Last Admin: 02/22/18 08:58 Dose: Not Given Folic Acid (Folate) 1 mg PO DAILY [facility] Stop: 04/22/18 08:59 Last Admin: 02/22/18 08:58 Dose: Not Given Guaifenesin (Robitussin) 100 mg PO Q4H PRN PRN Reason: Cough or Congestion Stop: 04/21/18 11:44 Dextrose/Sodium Chloride (D5-0.45ns) 1,000 mls @ 50 mls/hr IV .Q20H [facility] Stop: 04/21/18 11:44 Last Admin: 02/21/18 05:02 Dose: 50 mls/hr Ipratropium [place] (Atrovent Neb 0.5mg/2.5ml) 0.5 mg IH Q2HR PRN PRN Reason: Shortness of Breath or Wheeze Stop: 04/21/18 11:43 Levothyroxine Sodium 0.1 mg/ (Levothyroxine Sodium 0.05 mg) 0.15 mg PO QDAC [facility] Stop: 04/22/18 07:29 Last Admin: 02/22/18 08:57 Dose: Not Given Lorazepam (Ativan) 0.5 mg PO Q6H PRN; Protocol PRN Reason: Anxiety Stop: 04/21/18 11:40 Magnesium Hydroxide (Milk Of Magnesia) 30 ml PO HS PRN PRN Reason: Constipation Stop: 04/21/18 11:40 Montelukast Sodium (Singulair) 10 mg PO HS [facility] Stop: 04/21/18 20:59 Last Admin: 02/21/18 21:53 Dose: 10 mg Ondansetron HCl (Zofran Odt) 4 mg PO Q8H PRN PRN Reason: Nausea / Vomiting Ondansetron HCl (Zofran) 4 mg IV Q8H PRN PRN Reason: Nausea / Vomiting Stop: 04/21/18 11:44 Pantoprazole Sodium (Protonix) 40 mg PO BID [facility] Stop: 04/21/18 16:59 Last Admin: 02/22/18 08:59 Dose: Not Given Polyethylene Glycol (Miralax) 17 gm PO DAILY [facility] Stop: 04/22/18 08:59 Last Admin: 02/22/18 08:59 Dose: Not Given Prednisone (Deltasone) 20 mg PO BID [facility] Stop: 04/22/18 08:59 Last Admin: 02/22/18 08:59 Dose: Not Given Sodium Phosphate (Fleet Enema) 135 ml RC PRN PRN PRN Reason: IF DULCOLAX SUPP. INEFFECTIVE Stop: 04/21/18 11:40 Timolol Maleate (Timoptic 0.5% Oph Soln) 1 drop LEFT EYE BID [facility] Stop: 04/21/18 16:59 Last Admin: 02/22/18 10:52 Dose: Not Given Valsartan (Diovan) 80 mg PO DAILY [facility] Stop: 04/22/18 08:59 Last Admin: 02/22/18 09:00 Dose: Not Given General: alert HEENT: NC/AT, PERRLA Neck: Supple Lungs: CTAB Cardiovascular: RRR, Normal S1, Normal S2, without murmur Abdomen: soft, non-tender, non-distended Extremities: excoriation Neurological: alert Internal Medicine Assmt/Plan - Assessment Assessment: s/p closed reduction of the left shoulder acute shoulder pain secondary to left humeral complete anterior dislocation of the glenohumeral joint htn gerd hypothyroidism cerebral palsy generalized weakness deaf and mute - Plan Plan: human services case manager to arrange placement fall precautions continue current plan of care
[2018-02-22] MEDS: D5-0.45NS 1,000 ML IV SCH (13:20)
--- NOTE | 2018-02-22 15:05 | Operative Report ---
DATE OF SURGERY: 02/22/2018 PREOPERATIVE DIAGNOSIS: Closed inferior dislocation, left shoulder. POSTOPERATIVE DIAGNOSIS: Closed inferior dislocation, left shoulder. SURGEON: Phani Daugherty M.D. PROSTHETIST: None. ANESTHESIOLOGIST: ____. PROCEDURE: Closed manipulation and reduction dislocated left shoulder under general anesthesia. DESCRIPTION OF PROCEDURE: Following induction of satisfactory anesthesia, the patient was placed prone on the operating table with the left shoulder and arm dangling over the side. Gentle traction pulling the shoulder anteriorly and upward was applied and the arm then internally rotated and the humerus pulled out and the shoulder snapped back into place. The reduction was confirmed with the x-ray. No undue force was required. There were no fractures. The patient was then placed supine on his hospital bed in good condition. He tolerated the procedure well. JOB# [id number]
[2018-02-23] MEDS: Albuterol/Ipratropium Neb 3 ML AERS HHN SCH ×4 (01:12→19:02)
[2018-02-23 06:18] LABS: % EOSINOPHILS 0.4 % (0.0-5.0); % LYMPHOCYTES 11.2 % (20.0-50.0); % MONOCYTES 9.9 % (2.0-10.0); % NEUTROPHILS 78.5 % (40.0-80.0); HEMATOCRIT 35.2 % (41.0-60); HEMOGLOBIN 12.1 gm/dL (12-16); LYMPHOCYTE ABSOLUTE 0.5 Th/cmm (1.5-3.0); MEAN CELL VOLUME 100.1 fl (80-99); MEAN CORPUSCULAR HEMOGLOBIN 34.4 pg (27.0-31.0); MEAN CORPUSCULAR HGB CONC 34.4 pg (28.0-36.0); MEAN PLATELET VOLUME 7.8 fl; MONOCYTE ABSOLUTE 0.4 Th/cmm (0.3-1.0); NEUTROPHILE ABSOLUTE 3.4 Th/cmm (1.8-8.0); PLATELET COUNT 194 Th/cmm (150-400); RED BLOOD COUNT 3.52 Mil/cmm (3.80-5.80); RED CELL DISTRIBUTION WIDTH 14.2 % (11.5-20.0); WHITE BLOOD COUNT 4.3 Th/cmm (4.8-10.8)
[2018-02-23 06:42] LABS: ANION GAP 9.5 (7.0-16.0); BUN - UREA NITROGEN 19 mg/dL (7-25); CALCIUM SERUM 8.7 mg/dL (8.6-10.3); CARBON DIOXIDE 30.7 mEq/L (21.0-31.0); CHLORIDE 100 mEq/L (98-107); CREATININE - SERUM 0.7 mg/dL (0.7-1.3); GFR AFRICAN-AMERICAN > 60.0 ml/min (>90); GFR NON AFRICAN-AMERICAN > 60.0 ml/min; GLUCOSE 99 mg/dL (70-105); POTASSIUM SERUM 4.2 mEq/L (3.5-5.1); SODIUM SERUM 136 mEq/L (136-145)
[2018-02-23] MEDS: Budesonide 0.5 Mg/2 mL Ud HHN SCH ×2 (07:09→19:19)
[2018-02-23] MEDS: Diltiazem CD 180 mg C24 PO SCH (10:15)
[2018-02-23] MEDS: Ferrous Sulfate 325 MG TAB PO SCH (10:27)
[2018-02-23] MEDS: Multivitamin w/ Minerals Tab PO SCH (10:27)
[2018-02-23] MEDS: POLYETHYLENE GLYCOL 3350 17 GM PACK PO SCH (10:27)
[2018-02-23] MEDS: Pantoprazole 40 mg EC Tab PO SCH (10:27)
--- NOTE | 2018-02-23 10:45 | Internal Medicine Prog Note ---
Internal Medicine Subjective - Subjective Service Date: 02/23/18 Patient seen and examined:: with staff Patient is:: awake, non-verbal Patient Complaints of:: vomitting Per staff patient has:: tolerating meds Internal Medicine Objective - Results Result Diagrams: 02/23/18 05:55 02/23/18 05:55 Recent Labs: Laboratory Last Values WBC 4.3 Th/cmm (4.8-10.8) L 02/23/18 05:55 RBC 3.52 Mil/cmm (3.80-5.80) L 02/23/18 05:55 Hgb 12.1 gm/dL (12-16) 02/23/18 05:55 Hct 35.2 % (41.0-60) L 02/23/18 05:55 MCV 100.1 fl (80-99) H 02/23/18 05:55 MCH 34.4 pg (27.0-31.0) H 02/23/18 05:55 MCHC Differential 34.4 pg (28.0-36.0) 02/23/18 05:55 RDW 14.2 % (11.5-20.0) 02/23/18 05:55 Plt Count 194 Th/cmm (150-400) 02/23/18 05:55 MPV 7.8 fl 02/23/18 05:55 Add Manual Diff YES 02/22/18 06:00 Neutrophils % 78.5 % (40.0-80.0) 02/23/18 05:55 Band Neutrophils % 3 % (0-10) 02/22/18 06:00 Lymphocytes % 11.2 % (20.0-50.0) L 02/23/18 05:55 Monocytes % 9.9 % (2.0-10.0) 02/23/18 05:55 Eosinophils % 0.4 % (0.0-5.0) 02/23/18 05:55 Basophils % 0.0 % (0.0-2.0) 02/23/18 05:55 Neutrophils (Manual) 79 % (40-80) 02/22/18 06:00 Lymphocytes 10 % (20-50) L 02/22/18 06:00 Monocytes 7 % (2-10) 02/22/18 06:00 Eosinophils 1 % (0-5) 02/22/18 06:00 Basophils 0 % (0-3) 02/22/18 06:00 Platelet Estimate ADEQUATE (NORMAL) 02/22/18 06:00 PT 10.1 SECONDS (9.5-11.5) 02/21/18 05:40 INR 0.97 (0.5-1.4) 02/21/18 05:40 PTT (Actin FS) 26.3 SECONDS (26.0-38.0) 02/21/18 05:40 Sodium 136 mEq/L (136-145) 02/23/18 05:55 Potassium 4.2 mEq/L (3.5-5.1) 02/23/18 05:55 Chloride 100 mEq/L (98-107) 02/23/18 05:55 Carbon Dioxide 30.7 mEq/L (21.0-31.0) 02/23/18 05:55 Anion Gap 9.5 (7.0-16.0) 02/23/18 05:55 BUN 19 mg/dL (7-25) 02/23/18 05:55 Creatinine 0.7 mg/dL (0.7-1.3) 02/23/18 05:55 Est GFR ( Amer) > 60.0 ml/min (>90) 02/23/18 05:55 Est GFR (Non-Af Amer) > 60.0 ml/min 02/23/18 05:55 BUN/Creatinine Ratio 27.1 02/23/18 05:55 Glucose 99 mg/dL (70-105) 02/23/18 05:55 Calcium 8.7 mg/dL (8.6-10.3) 02/23/18 05:55 Total Bilirubin 0.3 mg/dL (0.3-1.0) 02/21/18 05:40 AST 13 U/L (13-39) 02/21/18 05:40 ALT 13 U/L (7-52) 02/21/18 05:40 Alkaline Phosphatase 46 U/L (34-104) 02/21/18 05:40 Total Protein 5.1 gm/dL (6.0-8.3) L 02/21/18 05:40 Albumin 2.8 gm/dL (4.2-5.5) L 02/21/18 05:40 Globulin 2.3 gm/dL 02/21/18 05:40 Albumin/Globulin Ratio 1.2 (1.0-1.8) 02/21/18 05:40 Urine Source MIDSTREAM 02/20/18 10:50 Urine Color YELLOW 02/20/18 10:50 Urine Clarity CLEAR (CLEAR) 02/20/18 10:50 Urine pH 7.0 (4.6 - 8.0) 02/20/18 10:50 Ur Specific [place] 1.010 (1.005-1.030) 02/20/18 10:50 Urine Protein NEGATIVE mg/dL (NEGATIVE) 02/20/18 10:50 Urine Glucose (UA) NEGATIVE mg/dL (NEGATIVE) 02/20/18 10:50 Urine Ketones NEGATIVE mg/dL (NEGATIVE) 02/20/18 10:50 Urine Blood NEGATIVE (NEGATIVE) 02/20/18 10:50 Urine Nitrate NEGATIVE (NEGATIVE) 02/20/18 10:50 Urine Bilirubin NEGATIVE (NEGATIVE) 02/20/18 10:50 Urine Urobilinogen 0.2 E.U./dL (0.2 - 1.0) 02/20/18 10:50 Ur Leukocyte Esterase NEGATIVE (NEGATIVE) 02/20/18 10:50 - Physical Exam Vitals and I&O: Vital Signs Temp 98.1 F 02/23/18 08:00 Pulse 95 02/23/18 08:00 Resp 18 02/23/18 08:00 BP 142/105 02/23/18 08:00 Pulse Ox 98 02/23/18 08:00 Intake & Output 02/22/18 02/23/18 02/23/18 18:59 06:59 18:59 Weight (lbs) 160 lb 128 lb 9.6 oz Other: # Voids 2 Weight Source Bedscale Bedscale Active Medications: Current Medications Acetaminophen (Tylenol) 650 mg PO Q6HR PRN PRN Reason: Fever >101/MILD PAIN Stop: 04/21/18 11:40 Acetaminophen (Tylenol Extra Strength) 1,000 mg PO Q8H PRN PRN Reason: MODERATE PAIN Stop: 04/21/18 11:40 Al Hydrox/Mg Hydrox/Simethicone (Maalox) 30 ml PO Q6HR PRN PRN Reason: Dyspepsia Stop: 04/21/18 11:44 Albuterol Sulfate (Albuterol 2.5mg/3ml Neb Ud) 2.5 mg IH Q2HR PRN PRN Reason: Shortness of Breath or Wheeze Stop: 04/21/18 11:43 Albuterol/Ipratropium (Duoneb Neb) 3 ml HHN Q6HRT [facility] Stop: 04/21/18 11:59 Last Admin: 02/23/18 07:28 Dose: 3 ml Ascorbic Acid (Vitamin C) 500 mg PO DAILY [facility] Stop: 04/22/18 08:59 Last Admin: 02/23/18 10:27 Dose: Not Given Bisacodyl (Dulcolax 10 Mg Supp) 10 mg RC DAILY PRN PRN Reason: IF MOM INEFFECTIVE Stop: 04/21/18 11:40 Brimonidine Tartrate (Alphagan 0.2% [facility]) 1 drop LEFT EYE BID [facility] Stop: 04/21/18 16:59 Last Admin: 02/23/18 09:00 Dose: 1 drop Budesonide (Pulmicort) 0.5 mg HHN BIDRT [facility] Stop: 04/21/18 18:59 Last Admin: 02/22/18 20:16 Dose: 0.5 mg Diltiazem HCl (Cardizem Cd) 180 mg PO DAILY [facility] Stop: 04/22/18 08:59 Last Admin: 02/22/18 09:00 Dose: Not Given Diphenhydramine HCl (Benadryl) 25 mg PO Q8H [facility] Stop: 04/21/18 11:44 Last Admin: 02/23/18 03:58 Dose: Not Given Docusate Sodium (Colace) 200 mg PO BID [facility] Stop: 04/21/18 16:59 Last Admin: 02/23/18 10:27 Dose: Not Given Ferrous Sulfate (Iron) 325 mg PO DAILY [facility] Stop: 04/22/18 08:59 Last Admin: 02/23/18 10:27 Dose: Not Given Folic Acid (Folate) 1 mg PO DAILY [facility] Stop: 04/22/18 08:59 Last Admin: 02/23/18 10:27 Dose: Not Given Guaifenesin (Robitussin) 100 mg PO Q4H PRN PRN Reason: Cough or Congestion Stop: 04/21/18 11:44 Dextrose/Sodium Chloride (D5-0.45ns) 1,000 mls @ 50 mls/hr IV .Q20H [facility] Stop: 04/21/18 11:44 Last Admin: 02/22/18 13:20 Dose: 50 mls/hr Ipratropium [place] (Atrovent Neb 0.5mg/2.5ml) 0.5 mg IH Q2HR PRN PRN Reason: Shortness of Breath or Wheeze Stop: 04/21/18 11:43 Levothyroxine Sodium 0.1 mg/ (Levothyroxine Sodium 0.05 mg) 0.15 mg PO QDAC [facility] Stop: 04/22/18 07:29 Last Admin: 02/23/18 09:26 Dose: Not Given Lorazepam (Ativan) 0.5 mg PO Q6H PRN; Protocol PRN Reason: Anxiety Stop: 04/21/18 11:40 Magnesium Hydroxide (Milk Of Magnesia) 30 ml PO HS PRN PRN Reason: Constipation Stop: 04/21/18 11:40 Montelukast Sodium (Singulair) 10 mg PO HS [facility] Stop: 04/21/18 20:59 Last Admin: 02/22/18 22:00 Dose: 10 mg Mupirocin (Bactroban Oint) 1 appl NS BID [facility] Stop: 02/27/18 09:01 Last Admin: 02/23/18 09:00 Dose: 1 appl Ondansetron HCl (Zofran Odt) 4 mg PO Q8H PRN PRN Reason: Nausea / Vomiting Ondansetron HCl (Zofran) 4 mg IV Q8H PRN PRN Reason: Nausea / Vomiting Stop: 04/21/18 11:44 Last Admin: 02/23/18 08:58 Dose: 4 mg Pantoprazole Sodium (Protonix) 40 mg PO BID [facility] Stop: 04/21/18 16:59 Last Admin: 02/23/18 10:27 Dose: Not Given Polyethylene Glycol (Miralax) 17 gm PO DAILY [facility] Stop: 04/22/18 08:59 Last Admin: 02/23/18 10:27 Dose: Not Given Prednisone (Deltasone) 20 mg PO BID [facility] Stop: 04/22/18 08:59 Last Admin: 02/23/18 10:27 Dose: Not Given Sodium Phosphate (Fleet Enema) 135 ml RC PRN PRN PRN Reason: IF DULCOLAX SUPP. INEFFECTIVE Stop: 04/21/18 11:40 Timolol Maleate (Timoptic 0.5% Ophth Soln) 1 drop LEFT EYE BID [facility] Stop: 04/21/18 16:59 Last Admin: 02/23/18 09:00 Dose: 1 drop Valsartan (Diovan) 80 mg PO DAILY [facility] Stop: 04/22/18 08:59 Last Admin: 02/22/18 09:00 Dose: Not Given General: alert HEENT: NC/AT, PERRLA Neck: Supple Lungs: CTAB Cardiovascular: RRR, Normal S1, Normal S2, without murmur Abdomen: soft, non-tender, non-distended Extremities: excoriation Neurological: alert - Procedures Procedures: Procedures Procedure Code Date REPOSITION LEFT SHOULDER JOINT, EXTERNAL APPROACH [id number] 02/20/18 Internal Medicine Assmt/Plan - Assessment Assessment: s/p closed reduction of the left shoulder vomiting acute shoulder pain secondary to left humeral complete anterior dislocation of the glenohumeral joint htn gerd hypothyroidism cerebral palsy generalized weakness deaf and mute - Plan Plan: change protonix po to iv abdominal u/s as ordered npo for now continue ivf for hydration rifle case repairer to arrange placement fall precautions continue current plan of care
--- NOTE | 2018-02-23 14:06 | Consultation ---
DATE OF CONSULTATION: 02/23/2018 REFERRING PHYSICIAN: Dr. Osuna. REASON FOR CONSULTATION: Nausea, vomiting. HISTORY OF PRESENT ILLNESS: A 67-year-old male with nausea, vomiting for 2 days without any hematemesis or coffee ground emesis. The patient is otherwise a poor historian, unable to give any meaningful history. He was originally admitted to the hospital for shoulder pain. PAST MEDICAL HISTORY: Hypertension, GERD, hypothyroidism, cerebral palsy, deaf, mute, muscle weakness. PAST SURGICAL HISTORY: Trach and possible prior PEG. FAMILY HISTORY: Noncontributory. SOCIAL HISTORY: Resident of [facility] facility. ALLERGIES: None. CURRENT MEDICATIONS: Tylenol, Maalox, vitamin C, Dulcolax, Pulmicort, Cardizem, Benadryl, Colace, iron, folic acid, Robitussin, levothyroxine, Singulair, Protonix, MiraLax, Diovan. REVIEW OF SYSTEMS: Ten point review of system was performed and the pertinent positive was the nausea, vomiting, shoulder pain. All other systems were otherwise negative. PHYSICAL EXAMINATION: VITAL SIGNS: Temperature 98.2, breathing 18, pulse of 92, blood pressure 129/94, satting 98%. GENERAL: In no apparent distress. EYES: Anicteric. Normal conjunctivae. HEENT: Normocephalic, atraumatic. Moist mucous membranes. NECK: Soft, supple. CHEST: Clear. No effort. CARDIOVASCULAR: Regular rate and rhythm. ABDOMEN: Soft, nontender, nondistended with old PEG tube scar. SKIN: Warm, dry. EXTREMITIES: Reveal no cyanosis. LABORATORY DATA: Show white count 4.3, hemoglobin 12.1, platelets of 194. INR 0.97, total bilirubin 0.3, AST 13, ALT 13, alkaline phosphatase 46. UA was negative. IMPRESSION: This is a 67-year-old male with nausea and vomiting of unclear etiology. PLAN: 1. Would recommend imaging by way of ultrasound. If that is negative, consider CT. 2. Continue Protonix. 3. Check abdominal ultrasound. 4. Check a CAT scan. 5. If symptoms persist, may need endoscopy. Thank you for allowing me to participate. Please call me if any questions. JOB# [id number]
[2018-02-23] MEDS: D5-0.45NS 1,000 ML IV SCH (17:27)
[2018-02-24] MEDS: Albuterol/Ipratropium Neb 3 ML AERS HHN SCH ×4 (00:04→19:10)
[2018-02-24 06:47] LABS: HEMATOCRIT 36.3 % (41.0-60); HEMOGLOBIN 12.4 gm/dL (12-16); MEAN CELL VOLUME 101.5 fl (80-99); MEAN CORPUSCULAR HEMOGLOBIN 34.6 pg (27.0-31.0); MEAN CORPUSCULAR HGB CONC 34.1 pg (28.0-36.0); MEAN PLATELET VOLUME 7.7 fl; PLATELET COUNT 214 Th/cmm (150-400); RED BLOOD COUNT 3.57 Mil/cmm (3.80-5.80); RED CELL DISTRIBUTION WIDTH 14.6 % (11.5-20.0)
[2018-02-24 07:04] LABS: ANION GAP 9.6 (7.0-16.0); BUN - UREA NITROGEN 19 mg/dL (7-25); CALCIUM SERUM 8.9 mg/dL (8.6-10.3); CARBON DIOXIDE 30.6 mEq/L (21.0-31.0); CHLORIDE 100 mEq/L (98-107); CREATININE - SERUM 0.8 mg/dL (0.7-1.3); GFR AFRICAN-AMERICAN > 60.0 ml/min (>90); GFR NON AFRICAN-AMERICAN > 60.0 ml/min; GLUCOSE 90 mg/dL (70-105); POTASSIUM SERUM 4.2 mEq/L (3.5-5.1); SODIUM SERUM 136 mEq/L (136-145)
[2018-02-24 07:07] LABS: WHITE BLOOD COUNT 3.3 Th/cmm (4.8-10.8)
[2018-02-24] MEDS: Budesonide 0.5 Mg/2 mL Ud HHN SCH ×2 (07:08→19:21)
[2018-02-24 08:00] LABS: BAND NEUTROPHILE 1 % (0-10); LYMPHOCYTE 14 % (20-50); MONOCYTE 7 % (2-10); NEUTROPHILS 78 % (40-80)
[2018-02-24 08:01] LABS: BASOPHIL 0 % (0-3); EOSINOPHIL 0 % (0-5)
--- NOTE | 2018-02-24 08:12 | GI Progress Note ---
Subjective - Review of Systems Subjective: NO N/V Objective - Results Result Diagrams: 02/24/18 06:20 02/24/18 06:20 Recent Labs: Laboratory Last Values WBC 3.3 Th/cmm (4.8-10.8) L 02/24/18 06:20 RBC 3.57 Mil/cmm (3.80-5.80) L 02/24/18 06:20 Hgb 12.4 gm/dL (12-16) 02/24/18 06:20 Hct 36.3 % (41.0-60) L 02/24/18 06:20 MCV 101.5 fl (80-99) H 02/24/18 06:20 MCH 34.6 pg (27.0-31.0) H 02/24/18 06:20 MCHC Differential 34.1 pg (28.0-36.0) 02/24/18 06:20 RDW 14.6 % (11.5-20.0) 02/24/18 06:20 Plt Count 214 Th/cmm (150-400) 02/24/18 06:20 MPV 7.7 fl 02/24/18 06:20 Add Manual Diff YES 02/24/18 06:20 Neutrophils % 78.5 % (40.0-80.0) 02/23/18 05:55 Band Neutrophils % 1 % (0-10) 02/24/18 06:20 Lymphocytes % 11.2 % (20.0-50.0) L 02/23/18 05:55 Monocytes % 9.9 % (2.0-10.0) 02/23/18 05:55 Eosinophils % 0.4 % (0.0-5.0) 02/23/18 05:55 Basophils % 0.0 % (0.0-2.0) 02/23/18 05:55 Neutrophils (Manual) 78 % (40-80) 02/24/18 06:20 Lymphocytes 14 % (20-50) L 02/24/18 06:20 Monocytes 7 % (2-10) 02/24/18 06:20 Eosinophils 0 % (0-5) 02/24/18 06:20 Basophils 0 % (0-3) 02/24/18 06:20 Platelet Estimate ADEQUATE (NORMAL) 02/22/18 06:00 PT 10.1 SECONDS (9.5-11.5) 02/21/18 05:40 INR 0.97 (0.5-1.4) 02/21/18 05:40 PTT (Actin FS) 26.3 SECONDS (26.0-38.0) 02/21/18 05:40 Sodium 136 mEq/L (136-145) 02/24/18 06:20 Potassium 4.2 mEq/L (3.5-5.1) 02/24/18 06:20 Chloride 100 mEq/L (98-107) 02/24/18 06:20 Carbon Dioxide 30.6 mEq/L (21.0-31.0) 02/24/18 06:20 Anion Gap 9.6 (7.0-16.0) 02/24/18 06:20 BUN 19 mg/dL (7-25) 02/24/18 06:20 Creatinine 0.8 mg/dL (0.7-1.3) 02/24/18 06:20 Est GFR ( Amer) > 60.0 ml/min (>90) 02/24/18 06:20 Est GFR (Non-Af Amer) > 60.0 ml/min 02/24/18 06:20 BUN/Creatinine Ratio 23.8 02/24/18 06:20 Glucose 90 mg/dL (70-105) 02/24/18 06:20 Calcium 8.9 mg/dL (8.6-10.3) 02/24/18 06:20 Total Bilirubin 0.3 mg/dL (0.3-1.0) 02/21/18 05:40 AST 13 U/L (13-39) 02/21/18 05:40 ALT 13 U/L (7-52) 02/21/18 05:40 Alkaline Phosphatase 46 U/L (34-104) 02/21/18 05:40 Total Protein 5.1 gm/dL (6.0-8.3) L 02/21/18 05:40 Albumin 2.8 gm/dL (4.2-5.5) L 02/21/18 05:40 Globulin 2.3 gm/dL 02/21/18 05:40 Albumin/Globulin Ratio 1.2 (1.0-1.8) 02/21/18 05:40 Urine Source MIDSTREAM 02/20/18 10:50 Urine Color YELLOW 02/20/18 10:50 Urine Clarity CLEAR (CLEAR) 02/20/18 10:50 Urine pH 7.0 (4.6 - 8.0) 02/20/18 10:50 Ur Specific [place] 1.010 (1.005-1.030) 02/20/18 10:50 Urine Protein NEGATIVE mg/dL (NEGATIVE) 02/20/18 10:50 Urine Glucose (UA) NEGATIVE mg/dL (NEGATIVE) 02/20/18 10:50 Urine Ketones NEGATIVE mg/dL (NEGATIVE) 02/20/18 10:50 Urine Blood NEGATIVE (NEGATIVE) 02/20/18 10:50 Urine Nitrate NEGATIVE (NEGATIVE) 02/20/18 10:50 Urine Bilirubin NEGATIVE (NEGATIVE) 02/20/18 10:50 Urine Urobilinogen 0.2 E.U./dL (0.2 - 1.0) 02/20/18 10:50 Ur Leukocyte Esterase NEGATIVE (NEGATIVE) 02/20/18 10:50 - Physical Exam Vitals and I&O: Vital Signs Temp 96.8 F 02/24/18 04:00 Pulse 89 02/24/18 07:09 Resp 20 02/24/18 07:09 BP 135/93 02/24/18 04:00 Pulse Ox 98 02/24/18 07:09 Intake & Output 02/23/18 02/24/18 02/24/18 18:59 06:59 18:59 Intake Total 1000 100 Output Total 300 Balance 1000 -200 Weight (lbs) 58.06 kg Intake: Intake, IV Amount 1000 D5-0.45NS 1,000 ml @ 50 1000 mls/hr IV .Q20H [facility] Rx#: [id number] Oral 100 Output: Urine 300 Other: Weight Source Bedscale Active Medications: Current Medications Acetaminophen (Tylenol) 650 mg PO Q6HR PRN PRN Reason: Fever >101/MILD PAIN Stop: 04/21/18 11:40 Acetaminophen (Tylenol Extra Strength) 1,000 mg PO Q8H PRN PRN Reason: MODERATE PAIN Stop: 04/21/18 11:40 Al Hydrox/Mg Hydrox/Simethicone (Maalox) 30 ml PO Q6HR PRN PRN Reason: Dyspepsia Stop: 04/21/18 11:44 Albuterol Sulfate (Albuterol 2.5mg/3ml Neb Ud) 2.5 mg IH Q2HR PRN PRN Reason: Shortness of Breath or Wheeze Stop: 04/21/18 11:43 Albuterol/Ipratropium (Duoneb Neb) 3 ml HHN Q6HRT [facility] Stop: 04/21/18 11:59 Last Admin: 02/24/18 07:08 Dose: 3 ml Ascorbic Acid (Vitamin C) 500 mg PO DAILY [facility] Stop: 04/22/18 08:59 Last Admin: 02/23/18 10:27 Dose: Not Given Bisacodyl (Dulcolax 10 Mg Supp) 10 mg RC DAILY PRN PRN Reason: IF MOM INEFFECTIVE Stop: 04/21/18 11:40 Brimonidine Tartrate (Alphagan 0.2% [facility]) 1 drop LEFT EYE BID [facility] Stop: 04/21/18 16:59 Last Admin: 02/23/18 17:27 Dose: 1 drop Budesonide (Pulmicort) 0.5 mg HHN BIDRT [facility] Stop: 04/21/18 18:59 Last Admin: 02/24/18 07:08 Dose: 0.5 mg Diltiazem HCl (Cardizem Cd) 180 mg PO DAILY [facility] Stop: 04/22/18 08:59 Last Admin: 02/23/18 10:15 Dose: Not Given Diphenhydramine HCl (Benadryl) 25 mg PO Q8H [facility] Stop: 04/21/18 11:44 Last Admin: 02/24/18 03:11 Dose: Not Given Docusate Sodium (Colace) 200 mg PO BID [facility] Stop: 04/21/18 16:59 Last Admin: 02/23/18 18:06 Dose: 200 mg Ferrous Sulfate (Iron) 325 mg PO DAILY [facility] Stop: 04/22/18 08:59 Last Admin: 02/23/18 10:27 Dose: Not Given Folic Acid (Folate) 1 mg PO DAILY [facility] Stop: 04/22/18 08:59 Last Admin: 02/23/18 10:27 Dose: Not Given Guaifenesin (Robitussin) 100 mg PO Q4H PRN PRN Reason: Cough or Congestion Stop: 04/21/18 11:44 Dextrose/Sodium Chloride (D5-0.45ns) 1,000 mls @ 50 mls/hr IV .Q20H [facility] Stop: 04/21/18 11:44 Last Admin: 02/23/18 17:27 Dose: 50 mls/hr Ipratropium [place] (Atrovent Neb 0.5mg/2.5ml) 0.5 mg IH Q2HR PRN PRN Reason: Shortness of Breath or Wheeze Stop: 04/21/18 11:43 Levothyroxine Sodium 0.1 mg/ (Levothyroxine Sodium 0.05 mg) 0.15 mg PO QDAC [facility] Stop: 04/22/18 07:29 Last Admin: 02/24/18 06:30 Dose: 0.15 mg Lorazepam (Ativan) 0.5 mg PO Q6H PRN; Protocol PRN Reason: Anxiety Stop: 04/21/18 11:40 Last Admin: 02/23/18 22:34 Dose: 0.5 mg Magnesium Hydroxide (Milk Of Magnesia) 30 ml PO HS PRN PRN Reason: Constipation Stop: 04/21/18 11:40 Montelukast Sodium (Singulair) 10 mg PO HS [facility] Stop: 04/21/18 20:59 Last Admin: 02/23/18 21:19 Dose: 10 mg Mupirocin (Bactroban Oint) 1 appl NS BID [facility] Stop: 02/27/18 09:01 Last Admin: 02/23/18 17:27 Dose: 1 appl Ondansetron HCl (Zofran Odt) 4 mg PO Q8H PRN PRN Reason: Nausea / Vomiting Ondansetron HCl (Zofran) 4 mg IV Q8H PRN PRN Reason: Nausea / Vomiting Stop: 04/21/18 11:44 Last Admin: 02/23/18 18:06 Dose: 4 mg Pantoprazole Sodium (Protonix) 40 mg IVP BID [facility] Stop: 04/24/18 16:59 Last Admin: 02/23/18 17:24 Dose: 40 mg Polyethylene Glycol (Miralax) 17 gm PO DAILY [facility] Stop: 04/22/18 08:59 Last Admin: 02/23/18 10:27 Dose: Not Given Prednisone (Deltasone) 20 mg PO BID [facility] Stop: 04/22/18 08:59 Last Admin: 02/23/18 18:05 Dose: 20 mg Sodium Phosphate (Fleet Enema) 135 ml RC PRN PRN PRN Reason: IF DULCOLAX SUPP. INEFFECTIVE Stop: 04/21/18 11:40 Timolol Maleate (Timoptic 0.5% Ophth Soln) 1 drop LEFT EYE BID [facility] Stop: 04/21/18 16:59 Last Admin: 02/23/18 17:27 Dose: 1 drop Valsartan (Diovan) 80 mg PO DAILY [facility] Stop: 04/22/18 08:59 Last Admin: 02/23/18 10:34 Dose: Not Given - Procedures Procedures: Procedures Procedure Code Date REPOSITION LEFT SHOULDER JOINT, EXTERNAL APPROACH 0RSKXZZ 02/20/18 Assessment/Plan - Problem List Patient Problems: All Active Problems LEFT SHOULDER INJURY (Acute) - Assessment Assessment: 67 YO MALE WITH N/V SEEMS RESOLVED LFTS NORMAL 1.AWAIT VIRAJ 2.MAY NEED CT 3.CONSIDER EGD IF SX'S PERSIST
--- NOTE | 2018-02-24 08:34 | Diagnostic Imaging Report ---
Abdominal ultrasound HISTORY: Vomiting The exam is very limited due to lack of patient cooperation and limited mobility. Limited views of the liver did not demonstrate any definite focal lesions. Limited evaluation the gallbladder appears normal. No definite intraluminal abnormalities. No biliary dilatation. The pancreas cannot be seen. No definite focal renal lesions. No hydronephrosis. The spleen is normal in size. No other retroperitoneal or intra-abdominal abnormalities. IMPRESSION: 1. Limited exam due to lack of patient cooperation and limited mobility 2. No definite abnormalities
[2018-02-24] MEDS: POLYETHYLENE GLYCOL 3350 17 GM PACK PO SCH (09:15)
[2018-02-24] MEDS: Ferrous Sulfate 325 MG TAB PO SCH (09:16)
[2018-02-24] MEDS: Multivitamin w/ Minerals Tab PO SCH (09:16)
[2018-02-24] MEDS: Diltiazem CD 180 mg C24 PO SCH (09:23)
--- NOTE | 2018-02-24 13:30 | Internal Medicine Prog Note ---
Internal Medicine Subjective - Subjective Service Date: 02/24/18 Patient seen and examined:: with staff Patient is:: awake, non-verbal Per staff patient has:: tolerating meds Internal Medicine Objective - Results Result Diagrams: 02/24/18 06:20 02/24/18 06:20 Recent Labs: Laboratory Last Values WBC 3.3 Th/cmm (4.8-10.8) L 02/24/18 06:20 RBC 3.57 Mil/cmm (3.80-5.80) L 02/24/18 06:20 Hgb 12.4 gm/dL (12-16) 02/24/18 06:20 Hct 36.3 % (41.0-60) L 02/24/18 06:20 MCV 101.5 fl (80-99) H 02/24/18 06:20 MCH 34.6 pg (27.0-31.0) H 02/24/18 06:20 MCHC Differential 34.1 pg (28.0-36.0) 02/24/18 06:20 RDW 14.6 % (11.5-20.0) 02/24/18 06:20 Plt Count 214 Th/cmm (150-400) 02/24/18 06:20 MPV 7.7 fl 02/24/18 06:20 Add Manual Diff YES 02/24/18 06:20 Neutrophils % 78.5 % (40.0-80.0) 02/23/18 05:55 Band Neutrophils % 1 % (0-10) 02/24/18 06:20 Lymphocytes % 11.2 % (20.0-50.0) L 02/23/18 05:55 Monocytes % 9.9 % (2.0-10.0) 02/23/18 05:55 Eosinophils % 0.4 % (0.0-5.0) 02/23/18 05:55 Basophils % 0.0 % (0.0-2.0) 02/23/18 05:55 Neutrophils (Manual) 78 % (40-80) 02/24/18 06:20 Lymphocytes 14 % (20-50) L 02/24/18 06:20 Monocytes 7 % (2-10) 02/24/18 06:20 Eosinophils 0 % (0-5) 02/24/18 06:20 Basophils 0 % (0-3) 02/24/18 06:20 Platelet Estimate ADEQUATE (NORMAL) 02/22/18 06:00 PT 10.1 SECONDS (9.5-11.5) 02/21/18 05:40 INR 0.97 (0.5-1.4) 02/21/18 05:40 PTT (Actin FS) 26.3 SECONDS (26.0-38.0) 02/21/18 05:40 Sodium 136 mEq/L (136-145) 02/24/18 06:20 Potassium 4.2 mEq/L (3.5-5.1) 02/24/18 06:20 Chloride 100 mEq/L (98-107) 02/24/18 06:20 Carbon Dioxide 30.6 mEq/L (21.0-31.0) 02/24/18 06:20 Anion Gap 9.6 (7.0-16.0) 02/24/18 06:20 BUN 19 mg/dL (7-25) 02/24/18 06:20 Creatinine 0.8 mg/dL (0.7-1.3) 02/24/18 06:20 Est GFR ( Amer) > 60.0 ml/min (>90) 02/24/18 06:20 Est GFR (Non-Af Amer) > 60.0 ml/min 02/24/18 06:20 BUN/Creatinine Ratio 23.8 02/24/18 06:20 Glucose 90 mg/dL (70-105) 02/24/18 06:20 Calcium 8.9 mg/dL (8.6-10.3) 02/24/18 06:20 Total Bilirubin 0.3 mg/dL (0.3-1.0) 02/21/18 05:40 AST 13 U/L (13-39) 02/21/18 05:40 ALT 13 U/L (7-52) 02/21/18 05:40 Alkaline Phosphatase 46 U/L (34-104) 02/21/18 05:40 Total Protein 5.1 gm/dL (6.0-8.3) L 02/21/18 05:40 Albumin 2.8 gm/dL (4.2-5.5) L 02/21/18 05:40 Globulin 2.3 gm/dL 02/21/18 05:40 Albumin/Globulin Ratio 1.2 (1.0-1.8) 02/21/18 05:40 Urine Source MIDSTREAM 02/20/18 10:50 Urine Color YELLOW 02/20/18 10:50 Urine Clarity CLEAR (CLEAR) 02/20/18 10:50 Urine pH 7.0 (4.6 - 8.0) 02/20/18 10:50 Ur Specific [place] 1.010 (1.005-1.030) 02/20/18 10:50 Urine Protein NEGATIVE mg/dL (NEGATIVE) 02/20/18 10:50 Urine Glucose (UA) NEGATIVE mg/dL (NEGATIVE) 02/20/18 10:50 Urine Ketones NEGATIVE mg/dL (NEGATIVE) 02/20/18 10:50 Urine Blood NEGATIVE (NEGATIVE) 02/20/18 10:50 Urine Nitrate NEGATIVE (NEGATIVE) 02/20/18 10:50 Urine Bilirubin NEGATIVE (NEGATIVE) 02/20/18 10:50 Urine Urobilinogen 0.2 E.U./dL (0.2 - 1.0) 02/20/18 10:50 Ur Leukocyte Esterase NEGATIVE (NEGATIVE) 02/20/18 10:50 - Physical Exam Vitals and I&O: Vital Signs Temp 98.5 F 02/24/18 11:57 Pulse 84 02/24/18 11:57 Resp 17 02/24/18 11:57 BP 138/90 02/24/18 11:57 Pulse Ox 99 02/24/18 11:57 Intake & Output 02/23/18 02/24/18 02/24/18 18:59 06:59 18:59 Intake Total 1000 100 Output Total 300 Balance 1000 -200 Weight (lbs) 128 lb Intake: Intake, IV Amount 1000 D5-0.45NS 1,000 ml @ 50 1000 mls/hr IV .Q20H [facility] Rx#: [id number] Oral 100 Output: Urine 300 Other: Weight Source Bedscale Active Medications: Current Medications Acetaminophen (Tylenol) 650 mg PO Q6HR PRN PRN Reason: Fever >101/MILD PAIN Stop: 04/21/18 11:40 Acetaminophen (Tylenol Extra Strength) 1,000 mg PO Q8H PRN PRN Reason: MODERATE PAIN Stop: 04/21/18 11:40 Al Hydrox/Mg Hydrox/Simethicone (Maalox) 30 ml PO Q6HR PRN PRN Reason: Dyspepsia Stop: 04/21/18 11:44 Albuterol Sulfate (Albuterol 2.5mg/3ml Neb Ud) 2.5 mg IH Q2HR PRN PRN Reason: Shortness of Breath or Wheeze Stop: 04/21/18 11:43 Albuterol/Ipratropium (Duoneb Neb) 3 ml HHN Q6HRT [facility] Stop: 04/21/18 11:59 Last Admin: 02/24/18 07:08 Dose: 3 ml Ascorbic Acid (Vitamin C) 500 mg PO DAILY [facility] Stop: 04/22/18 08:59 Last Admin: 02/24/18 09:16 Dose: 500 mg Bisacodyl (Dulcolax 10 Mg Supp) 10 mg RC DAILY PRN PRN Reason: IF MOM INEFFECTIVE Stop: 04/21/18 11:40 Brimonidine Tartrate (Alphagan 0.2% Oph Soln) 1 drop LEFT EYE BID [facility] Stop: 04/21/18 16:59 Last Admin: 02/24/18 09:15 Dose: 1 drop Budesonide (Pulmicort) 0.5 mg HHN BIDRT [facility] Stop: 04/21/18 18:59 Last Admin: 02/24/18 07:08 Dose: 0.5 mg Diltiazem HCl (Cardizem Cd) 180 mg PO DAILY [facility] Stop: 04/22/18 08:59 Last Admin: 02/24/18 09:23 Dose: Not Given Diphenhydramine HCl (Benadryl) 25 mg PO Q8H [facility] Stop: 04/21/18 11:44 Last Admin: 02/24/18 03:11 Dose: Not Given Docusate Sodium (Colace) 200 mg PO BID [facility] Stop: 04/21/18 16:59 Last Admin: 02/24/18 09:15 Dose: 200 mg Ferrous Sulfate (Iron) 325 mg PO DAILY [facility] Stop: 04/22/18 08:59 Last Admin: 02/24/18 09:16 Dose: 325 mg Folic Acid (Folate) 1 mg PO DAILY [facility] Stop: 04/22/18 08:59 Last Admin: 02/24/18 09:16 Dose: 1 mg Guaifenesin (Robitussin) 100 mg PO Q4H PRN PRN Reason: Cough or Congestion Stop: 04/21/18 11:44 Ipratropium [place] (Atrovent Neb 0.5mg/2.5ml) 0.5 mg IH Q2HR PRN PRN Reason: Shortness of Breath or Wheeze Stop: 04/21/18 11:43 Levothyroxine Sodium 0.1 mg/ (Levothyroxine Sodium 0.05 mg) 0.15 mg PO QDAC [facility] Stop: 04/22/18 07:29 Last Admin: 02/24/18 06:30 Dose: 0.15 mg Lorazepam (Ativan) 0.5 mg PO Q6H PRN; Protocol PRN Reason: Anxiety Stop: 04/21/18 11:40 Last Admin: 02/23/18 22:34 Dose: 0.5 mg Magnesium Hydroxide (Milk Of Magnesia) 30 ml PO HS PRN PRN Reason: Constipation Stop: 04/21/18 11:40 Montelukast Sodium (Singulair) 10 mg PO HS [facility] Stop: 04/21/18 20:59 Last Admin: 02/23/18 21:19 Dose: 10 mg Mupirocin (Bactroban Oint) 1 appl NS BID [facility] Stop: 02/27/18 09:01 Last Admin: 02/24/18 09:15 Dose: 1 appl Ondansetron HCl (Zofran Odt) 4 mg PO Q8H PRN PRN Reason: Nausea / Vomiting Ondansetron HCl (Zofran) 4 mg IV Q8H PRN PRN Reason: Nausea / Vomiting Stop: 04/21/18 11:44 Last Admin: 02/23/18 18:06 Dose: 4 mg Pantoprazole Sodium (Protonix) 40 mg IVP BID [facility] Stop: 04/24/18 16:59 Last Admin: 02/24/18 09:15 Dose: 40 mg Polyethylene Glycol (Miralax) 17 gm PO DAILY [facility] Stop: 04/22/18 08:59 Last Admin: 02/24/18 09:15 Dose: 17 gm Prednisone (Deltasone) 10 mg PO BID [facility] Stop: 04/25/18 16:59 Sodium Phosphate (Fleet Enema) 135 ml RC PRN PRN PRN Reason: IF DULCOLAX SUPP. INEFFECTIVE Stop: 04/21/18 11:40 Timolol Maleate (Timoptic 0.5% Ophth Soln) 1 drop LEFT EYE BID [facility] Stop: 04/21/18 16:59 Last Admin: 02/24/18 09:15 Dose: 1 drop Valsartan (Diovan) 80 mg PO DAILY [facility] Stop: 04/22/18 08:59 Last Admin: 02/24/18 09:23 Dose: Not Given General: alert HEENT: NC/AT, PERRLA Neck: Supple Lungs: CTAB Cardiovascular: RRR, Normal S1, Normal S2, without murmur Abdomen: soft, non-tender, non-distended Extremities: excoriation Neurological: alert - Procedures Procedures: Procedures Procedure Code Date REPOSITION LEFT SHOULDER JOINT, EXTERNAL APPROACH 0RSKXZZ 02/20/18 Internal Medicine Assmt/Plan - Assessment Assessment: s/p closed reduction of the left shoulder vomiting acute shoulder pain secondary to left humeral complete anterior dislocation of the glenohumeral joint htn gerd hypothyroidism cerebral palsy generalized weakness deaf and mute - Plan Plan: follow up labs in am continue ivf for hydration foster care case manager to arrange placement fall precautions continue current plan of care
== END 2018-02-24 21:05 | DRG 563 ==
LOC: ER 07:32 → MSI 10:05 → TELE 02-22 11:16 → MSI 02-22 13:52
PROVIDERS: ADMIT Internal Medicine; ATTEND Internal Medicine
PROC: 0RSKXZZ Reposition Left Shoulder Joint, External Approach (ICD-10-PCS; principal; 2018-02-22)
DX: S53.115A Anterior dislocation of left ulnohumeral joint, initial encounter (principal); G80.9 Cerebral palsy, unspecified; E03.9 Hypothyroidism, unspecified; K21.9 Gastro-esophageal reflux disease without esophagitis; H91.3 Deaf nonspeaking, not elsewhere classified; I10 Essential (primary) hypertension; R11.2 Nausea with vomiting, unspecified; W18.30XA Fall on same level, unspecified, initial encounter; Y93.89 Activity, other specified; Y92.89 Other specified places as the place of occurrence of the external cause; Y99.8 Other external cause status
CPT/HCPCS: 36415-UA; 71045-TC; 73030-TC-LT; 76000-TC; 76700-TC; 80048-TC; 80053-TC; 81003-TC; 85007-TC; 85025-TC; 85610-TC; 93005; 94760; C9113; J2405; J2704; J3010; Z7610